=== PATIENT | male | born 1990 | race African-American/Black ===

== ENCOUNTER 2017-02-25 11:08 | Emergency (ER) | payer MEDICAID ==
[~2017-02-25] VITALS: Ht 180.3 cm; Wt 132.0 kg
[~2017-02-25 11:08] MED LIST: DESCOVY; IBUP-1510 PO; OCD PO; PREZCOBIX; [UNRECOGNIZED DRUG - OTHER]
[2017-02-25 11:14] VITALS: BP 119/76
[2017-02-25] MEDS ORDERED: CEFTRIAXONE SODIUM 1 G/VIAL IM ONE (12:00)
[2017-02-25] MEDS ORDERED: LIDOCAINE HCL 1% 20ML VIAL (Pyxis) INJ INFIL ONE (12:30)
== END 2017-02-25 12:55 | disposition home or self-care (01) ==
LOC: ER 11:09
DX: Z02.89 Encounter for other administrative examinations (principal)
CPT/HCPCS: 96372; 99283; J0696; J3490

== ENCOUNTER 2017-02-26 12:01 | Emergency (ER) | payer MEDICAID ==
[~2017-02-26] VITALS: Ht 180.3 cm; Wt 132.0 kg
[2017-02-26 12:22] VITALS: BP 121/86
[2017-02-26] MEDS ORDERED: CEFTRIAXONE SODIUM 1 G/VIAL IM ONE (12:45)
[2017-02-26] MEDS ORDERED: LIDOCAINE HCL 1% 20ML VIAL (Pyxis) INJ MC ONE (13:30)
== END 2017-02-26 15:31 | disposition home or self-care (01) ==
LOC: ER 15:18
DX: Z76.0 Encounter for issue of repeat prescription (principal); Z79.1 Long term (current) use of non-steroidal anti-inflammatories (NSAID); Z79.899 Other long term (current) drug therapy; Z87.891 Personal history of nicotine dependence
CPT/HCPCS: 96372; 99283; J0696; J3490; A4565

== ENCOUNTER 2017-02-27 09:38 | Emergency (ER) | payer MEDICAID ==
[~2017-02-27] VITALS: Ht 180.3 cm; Wt 131.0 kg
[2017-02-27 09:55] VITALS: BP 123/79
[2017-02-27] MEDS ORDERED: CEFTRIAXONE SODIUM 1 G/VIAL IM ONE (10:30)
== END 2017-02-27 11:07 | disposition home or self-care (01) ==
LOC: ER 10:39
DX: G03.9 Meningitis, unspecified (principal); Z20.6 Contact with and (suspected) exposure to human immunodeficiency virus [HIV]; Z87.891 Personal history of nicotine dependence
CPT/HCPCS: 96372; 99283; J0696; Z7610

== ENCOUNTER 2017-02-28 09:59 | Emergency (ER) | payer MEDICAID ==
[~2017-02-28] VITALS: Ht 180.3 cm; Wt 131.0 kg
[2017-02-28 11:02] VITALS: BP 114/73
[2017-02-28] MEDS ORDERED: CEFTRIAXONE SODIUM 1 G/VIAL IM ONE (12:15)
== END 2017-02-28 13:01 | disposition home or self-care (01) ==
LOC: ER 11:21
DX: Z51.81 Encounter for therapeutic drug level monitoring (principal); A52.3 Neurosyphilis, unspecified; Z86.61 Personal history of infections of the central nervous system
CPT/HCPCS: 96372; 99283; J0696

== ENCOUNTER 2017-03-01 09:22 | Emergency (ER) | payer MEDICAID ==
[~2017-03-01] VITALS: Ht 180.3 cm; Wt 132.0 kg
[2017-03-01] MEDS ORDERED: CEFTRIAXONE SODIUM 1 G/VIAL IM ONE (11:30)
[2017-03-01 12:46] VITALS: BP 121/81
== END 2017-03-01 12:47 | disposition home or self-care (01) ==
LOC: ER 11:38
DX: Z79.899 Other long term (current) drug therapy (principal); A52.3 Neurosyphilis, unspecified; Z20.6 Contact with and (suspected) exposure to human immunodeficiency virus [HIV]
CPT/HCPCS: 96372; 99283; J0696

== ENCOUNTER 2017-03-02 09:07 | Emergency (ER) | payer MEDICAID ==
[~2017-03-02] VITALS: Ht 180.3 cm; Wt 132.0 kg
[~2017-03-02 09:07] MED LIST changes: -[UNRECOGNIZED DRUG - OTHER]
[2017-03-02] MEDS ORDERED: CEFTRIAXONE SODIUM 1 G/VIAL IM ONE (10:45)
[2017-03-02] MEDS ORDERED: LIDOCAINE HCL 1% 20ML VIAL (Pyxis) INJ MC ONE (10:45)
[2017-03-02 11:19] VITALS: BP 137/75
== END 2017-03-02 11:21 | disposition home or self-care (01) ==
LOC: ER 10:56
DX: A52.3 Neurosyphilis, unspecified (principal)
CPT/HCPCS: 96372; 99283; J0696; J3490; Z7610

== ENCOUNTER 2017-03-03 09:27 | Emergency (ER) | payer MEDICAID ==
[~2017-03-03] VITALS: Ht 180.3 cm; Wt 131.0 kg
[2017-03-03 09:45] VITALS: BP 126/84
[2017-03-03] MEDS ORDERED: LIDOCAINE HCL 1% 20ML VIAL (Pyxis) INJ INFIL ONE (11:30)
[2017-03-03] MEDS ORDERED: CEFTRIAXONE SODIUM 1 G/VIAL IM ONE (11:30)
== END 2017-03-03 13:41 | disposition home or self-care (01) ==
LOC: ER 10:20
DX: A53.0 Latent syphilis, unspecified as early or late (principal)
CPT/HCPCS: 96372; 99283; J0696; J3490; Z7610

== ENCOUNTER 2017-03-04 08:55 | Emergency (ER) | payer MEDICAID ==
[~2017-03-04] VITALS: Ht 180.3 cm; Wt 130.0 kg
[2017-03-04 09:25] VITALS: BP 134/77
[2017-03-04] MEDS ORDERED: CEFTRIAXONE SODIUM 1 G/VIAL IM ONE (09:45)
[2017-03-04] MEDS ORDERED: LIDOCAINE HCL 1% 20ML VIAL (Pyxis) INJ INFIL ONE (09:45)
== END 2017-03-04 10:20 | disposition home or self-care (01) ==
LOC: ER 08:55
DX: A53.0 Latent syphilis, unspecified as early or late (principal); Z79.899 Other long term (current) drug therapy
CPT/HCPCS: 96372; 99283; J0696; J3490; Z7610

== ENCOUNTER 2017-03-05 09:06 | Emergency (ER) | payer MEDICAID ==
[~2017-03-05] VITALS: Ht 180.3 cm; Wt 132.0 kg
[~2017-03-05 09:06] MED LIST changes: +[UNRECOGNIZED DRUG - OTHER]
[2017-03-05 09:33] VITALS: BP 125/74
[2017-03-05] MEDS ORDERED: CEFTRIAXONE SODIUM 1 G/VIAL IM ONE (10:00)
== END 2017-03-05 10:22 | disposition home or self-care (01) ==
LOC: ER 09:07
DX: B99.8 Other infectious disease (principal)
CPT/HCPCS: 96372; 99283; J0696

== ENCOUNTER 2017-03-06 08:42 | Emergency (ER) | payer MEDICAID ==
[~2017-03-06] VITALS: Ht 180.3 cm; Wt 127.0 kg
[~2017-03-06 08:42] MED LIST changes: -[UNRECOGNIZED DRUG - OTHER]
[2017-03-06 08:45] VITALS: BP 142/68
[2017-03-06] MEDS ORDERED: CEFTRIAXONE SODIUM 1 G/VIAL IM ONE (09:30)
[2017-03-06] MEDS ORDERED: LIDOCAINE HCL 1% 20ML VIAL (Pyxis) INJ MC ONE (09:30)
== END 2017-03-06 09:47 | disposition home or self-care (01) ==
LOC: ER 08:54
DX: Z79.899 Other long term (current) drug therapy (principal); A52.3 Neurosyphilis, unspecified; Z86.61 Personal history of infections of the central nervous system; Z20.6 Contact with and (suspected) exposure to human immunodeficiency virus [HIV]
CPT/HCPCS: 96372; 99283; J0696; J3490